=== PATIENT | male | born 1990 | race Caucasian/White ===

== ENCOUNTER 2025-02-18 13:46 | Outpatient (CLI) | payer OTHER ==
[2025-02-18 14:48] LABS: CALCIUM 9.7 mg/dL (8.5-10.1); CREATININE SERUM 0.84 mg/dL (0.70-1.30); GFR 105.23; POTASSIUM 4.98 mEq/L (3.5-5.1)
== END 2025-02-18 13:59 | disposition home or self-care (01) ==
LOC: LAB 13:46
PROVIDERS: ATTEND General Practice
DX: Z01.812 Encounter for preprocedural laboratory examination (principal)